=== PATIENT | female | born 1970 | race Caucasian/White ===

== ENCOUNTER 2018-03-04 08:16 | Emergency (ER) | END 2018-03-04 09:41 | disposition home or self-care (01) ==

== ENCOUNTER 2018-12-03 09:54 | Emergency (ER) | payer BC, OTHER ==
[~2018-12-03] VITALS: Ht 160 cm; Wt 112.8 kg
[~2018-12-03 09:54] MED LIST: NITR-58 PO; PHEN-537 PO
[2018-12-03 09:58] VITALS: RESP 18; Ht 160 cm; Wt 112.8 kg
[2018-12-03] MEDS ORDERED: SOD CHLORIDE 0.9% 1,000 ML IV STA (10:30)
[2018-12-03] MEDS ORDERED: KETOROLAC 30 MG INJ IV STA (10:30)
[2018-12-03] MEDS ORDERED: IOHEXOL 300MG/ML 150 ML BTL ONE (12:06)
[2018-12-03] MEDS ORDERED: SOD CHLORIDE 0.9% 100 ML ONE (12:06)
--- NOTE | 2018-12-03 12:12 | NUR ---
Procedure Ordered: CT ABD/PELV WITH IV CON Reason for Exam Today: ABD PAIN Previous Exams: Allergies: MORPHINE Current Medications Taken: Glucophage ( ) Metformin ( ) Previous reaction to contrast media: Yes ( ) No ( ) : Yes ( ) No ( X) Asthma: Yes ( X) No ( ) Diabetes: Yes (X ) No ( ) Myeloma: Yes ( ) No ( X) Heart Disease: Yes ( ) No (X ) Cardiac Disease: Yes ( ) No (X ) Kidney Disease: Yes ( ) No ( X) Vascular Disease: Yes ( ) No ( X) Patient Teaching done: Yes ( ) No ( ) Broadcast Meteorologist Used: Yes ( ) No ( ) Name of Broadcast Meteorologist: Language Used: As part of the test requested by your doctor, contrast media may be injected into your vein while the x-rays are being taken. Occasionally, reactions from IV contrast may occur. The physician and staff of this hospital are trained to treat these reactions. Select the type of Contrast that will be given to patient: Isovue 300 ( ) Isovue 370 ( ) Visipaque ( ) Cystografin ( ) Gastrographin ( ) Redi-cat ( ) Volumen ( ) Amount of contrast to be given: [id number]: 100CC IV IV ( ) PO ( ) Date given: 12.03.18 Lab Values: BUN: 5 Creatinine: .41 Reason why contrast cannot be given: Location of patient pre-procedure: ED2 Location of patient post procedure: ED2
[2018-12-03] MEDS ORDERED: HYDROmorphONE 0.5 MG/0.5 ML SYG IV STA (12:59)
[2018-12-03] MEDS ORDERED: MAGNESIUM CITRATE 300 ML BTL PO ONE (13:00)
[2018-12-03] MEDS ORDERED: TRAM50TA2 PO (13:53)
[2018-12-03] MEDS ORDERED: MAGN400O19 PO (13:53)
[2018-12-03] MEDS ORDERED: ONDA8TAB14 PO (13:56)
--- NOTE | 2018-12-03 13:56 | ERD ---
ER Documentation Chief Complaint Chief Complaint had appendectomy 11/27/18,+ nausea and vomiting, no bm in 6 days HPI This 48-year-old female presents status post appendectomy 6 days ago. She is here for vomiting intermittently nonbilious nonbloody. She is generalized lower abdominal pain as well. She has not had a bowel movement 6 days. She is passing gas. She denies fever chills. She is referred by her primary doctor Dr. Acuna for further evaluation. ROS All systems reviewed and are negative except as per history of present illness. Medications Home Meds Active Scripts Tramadol HCl (Tramadol HCl) 50 Mg Tablet, 50 MG PO Q4 PRN for PAIN, #20 TAB Prov:RAF JACOBO MD 12/03/18 Magnesium Hydroxide* (Milk Of Magnesia*) 400 Mg/5 Ml Oral.susp, 30 ML PO BID for 7 Days, ML Prov:RAF JACOBO MD 12/03/18 Phenazopyridine Hcl* (Pyridium*) 100 Mg Tab, 100 MG PO TID PRN for URINARY PAIN, #6 TAB Prov:POOL KOCH. TIRE REGROOVING MACHINE OPERATOR 03/04/18 Nitrofurantoin Monohyd Macrocr* (Macrobid*) 100 Mg Capsr, 100 MG PO BID for 7 Days, CAP Prov:POOL KOCH TIRE REGROOVING MACHINE OPERATOR 03/04/18 Allergies Allergies: Coded Allergies: morphine (Verified Allergy, Unknown, 12/03/18) PMhx/Soc History of Surgery: Yes (Cholecystectomy, CSX1; APPENDECTOMY) Anesthesia Reaction: No Hx Miscellaneous Medical Probl: Yes (DM, reccurent UTI) Hx Alcohol Use: No Hx Substance Use: No Hx Tobacco Use: No Smoking Status: Never smoker FmHx Family History: No diabetes, No coronary disease, No other Physical Exam Vitals Vital Signs Date Temp Pulse Resp B/P (MAP) Pulse Ox O2 O2 Flow FiO2 Time Delivery Rate 12/03/18 97.6 98 18 186/86 97 09:58 (119) Physical Exam Const: No acute distress morbidly obese. Head: Atraumatic Eyes: Normal Conjunctiva ENT: Normal External Ears, Nose and Mouth. Neck: Full range of motion. No meningismus. Resp: Clear to auscultation bilaterally Cardio: Regular rate and rhythm, no murmurs Abd: Soft, mild generalized tenderness without focal rebound or masses., non distended. Normal bowel sounds Skin: No petechiae or rashes Back: No midline or flank tenderness Ext: No cyanosis, or edema Neur: Awake and alert Psych: Normal Mood and Affect Result Diagram: 12/03/18 1050 12/03/18 1050 Results 24 hrs Laboratory Tests Test 12/03/18 10:13 12/03/18 10:45 12/03/18 10:50 Urine Color YELLOW Urine Clarity CLEAR Urine pH 6.0 Urine Specific [place] 1.035 Urine Ketones NEGATIVE mg/dL Urine Nitrite NEGATIVE mg/dL Urine Bilirubin NEGATIVE mg/dL Urine Urobilinogen NEGATIVE mg/dL Urine Leukocyte Esterase TRACE Susannah/ul Urine Microscopic RBC 1 /HPF Urine Microscopic WBC 3 /HPF Urine Squamous Epithelial Cells FEW /HPF Urine Hemoglobin 1+ mg/dL Urine Glucose 3+ mg/dL Urine Total Protein 1+ mg/dl POC Beta HCG, Qualitative NEGATIVE White Blood Count 8.0 10^3/ul Red Blood Count 5.57 10^6/ul Hemoglobin 13.9 g/dl Hematocrit 41.7 % Mean Corpuscular Volume 74.9 fl Mean Corpuscular Hemoglobin 25.0 pg Mean Corpuscular 33.3 g/dl Hemoglobin Concent Red Cell Distribution Width 14.1 % Platelet Count 310 10^3/UL Mean Platelet Volume 10.0 fl Immature Granulocytes % 0.400 % Neutrophils % 57.2 % Lymphocytes % 31.1 % Monocytes % 7.2 % Eosinophils % 3.9 % Basophils % 0.2 % Nucleated Red Blood Cells % 0.0 /100WBC Immature Granulocytes # 0.030 10^3/ul Neutrophils # 4.6 10^3/ul Lymphocytes # 2.5 10^3/ul Monocytes # 0.6 10^3/ul Eosinophils # 0.3 10^3/ul Basophils # 0.0 10^3/ul Nucleated Red Blood Cells # 0.0 10^3/ul Sodium Level 141 mmol/L Potassium Level 4.5 mmol/L Chloride Level 99 mmol/L Carbon Dioxide Level 30 mmol/L Anion Gap 12 Blood Urea Nitrogen 5 mg/dl Creatinine 0.41 mg/dl Est Glomerular Filtrat > 60 mL/min Rate mL/min Glucose Level 288 mg/dl Calcium Level 9.3 mg/dl Total Bilirubin 0.2 mg/dl Direct Bilirubin 0.00 mg/dl Indirect Bilirubin 0.2 mg/dl Aspartate Amino Transf (AST/SGOT) 28 IU/L Alanine 27 IU/L Aminotransferase (ALT/SGPT) Alkaline Phosphatase 131 IU/L Total Protein 7.9 g/dl Albumin 4.0 g/dl Globulin 3.90 g/dl Albumin/Globulin Ratio 1.02 Lipase 62 U/L Current Medications Medications Dose Sig/Jessica Start Time Status Last (Trade) Ordered Route PRN Stop Time Admin Dose Reason Admin Sodium 1,000 ml @ Q1H STAT 12/03/18 DC 12/03/18 Chloride 1,000 mls/hr IV 10:30 12/03/18 11:00 11:29 Ketorolac 30 mg ONCE STAT 12/03/18 DC 12/03/18 Tromethamine IV 10:30 12/03/18 10:59 (Toradol) 10:33 IV Flush 10 ml STK-MED 12/03/18 DC 12/03/18 (NS 10 ml) ONCE .ROUTE 12:06 12/03/18 12:17 12:07 Sodium 100 ml @ ud STK-MED 12/03/18 DC 12/03/18 Chloride ONCE .ROUTE 12:06 12/03/18 12:17 12:07 Iohexol 150 ml STK-MED 12/03/18 DC 12/03/18 (Omnipaque ONCE .ROUTE 12:06 12/03/18 12:17 300mg/ ml) 12:07 Magnesium 300 ml ONCE ONCE 12/03/18 DC 12/03/18 Citrate PO 13:00 12/03/18 13:11 (Citroma) 13:01 1 mg ONCE STAT 12/03/18 DC 12/03/18 Hydromorphone IV 12:59 12/03/18 13:11 HCl 13:00 (Dilaudid) Procedures/MDM Patient presents with postoperative pain and vomiting. She is passing gas. IV was obtained. She was given 1 L normal saline IV, CBC shows no significant acute abnormalities. CMP normal. Urine shows no significant signs of infection. Patient is given Toradol 30 mg IV, Zofran 4 mg IV. Patient was given Dilaudid 1 mg IV for persistent pain. CT abdomen pelvis shows nonspecific ovarian lesion with outpatient follow-up recommended. There is no evidence of ileus, constipation, signs of abscess. Patient had resolution of pain after observation and treatment. She was given magnesium citrate 1 bottle p.o. Call was placed to Dr. Ananda Garcia and case discussed. There is no findings of abscess, ileus, patient is improved here with observation treatment in ER. We will treat for pain with tramadol, milk of magnesia for constipation and return precautions for vomiting,, fevers, worsening pain, new worsening symptoms. Dr. Asya Garcia and patient agrees with plan. The patient was stable with no new complaints during the ER course. Clinically, there is no current evidence to suggest meningitis, sepsis, acute abdomen, pneumonia, stroke, acute coronary syndrome, pulmonary embolism, aortic dissection or any other emergent condition appearing to require further evaluation or hospitalization. Patient counseled regarding my diagnostic impression and care plan. Prior to discharge all questions answered. Pt agrees with treatment plan and understands strict return precautions. Pt is instructed to follow up with primary care provider within 24- 48 hours. Precautionary instructions provided including instructions to return to the ER if not improving or for any worsening or changing symptoms or concerns. Departure Diagnosis: Primary Impression: Post-op pain Condition: Stable Patient Instructions: Constipation (Adult), Post Op Wound Check, Pain Additional Instructions: No significant abnormal findings seen on CT scan. We will treat for constipation and pain. Drink clear fluids at home. See primary doctor for further evaluation of findings on ovary not related to surgery. Recheck for vomiting, fevers, worsening pain, blood, new worsening symptoms. RAF JACOBO MD Dec 03, 2018 13:56
[2018-12-03] MEDS ORDERED: ONDANSETRON 4 MG INJ IV STA (14:16)
[2018-12-03 14:18] VITALS: BP 144/83; PULSE 83
== END 2018-12-03 14:37 | disposition home or self-care (01) ==
LOC: FTE 09:54
DX: G89.18 Other acute postprocedural pain (principal); E11.9 Type 2 diabetes mellitus without complications
CPT/HCPCS: 36415; 74177; 80053; 81001; 81025; 83690; 85025; 96361; 96374; 96375; 99285; J1170; J1885; J2405; J7030; Q9967

== ENCOUNTER 2018-12-17 17:37 | Inpatient (IN) | payer BC, OTHER ==
[~2018-12-17] VITALS: Ht 160 cm; Wt 112.9 kg
[~2018-12-17 17:37] MED LIST changes: +MAGN400O19 PO; +ONDA8TAB14 PO; +TRAM50TA2 PO
[2018-12-17] MEDS ORDERED: LANT3I SC (19:46)
[2018-12-17] MEDS ORDERED: INSU100I12 SQ (19:46)
[2018-12-17] MEDS ORDERED: LISI-313 PO (19:47)
[2018-12-17] MEDS ORDERED: ASPIRIN 81 MG TAB PO STA (19:57)
--- NOTE | 2018-12-17 20:04 | ERD ---
ER Documentation Chief Complaint Chief Complaint L-SIDED CHEST TIGHTNESS WITH SOB X FEW DAYS; SENT BY PCP HPI 48-year-old female with a history of diabetes presenting with chest tightness with shortness of breath for the past few days. She states that the symptoms are intermittent but worse with deep inspiration. Not worsened with exertion. No associated diaphoresis, nausea, vomiting, dizziness. She did have surgery recently at the beginning of the month. She denies any cardiac history but does have a family history of heart disease in her family. She was seen by her primary care doctor, Dr. Meyer, who sent her here for admission for observation and cardiac workup. Reportedly she had an abnormal EKG there. ROS All systems reviewed and are negative except as per history of present illness. Medications Home Meds Reported Medications Lisinopril* (Lisinopril*) 5 Mg Tablet, 5 MG PO DAILY, #30 TAB 12/17/18 Insulin Lispro (Humalog Kwikpen U-100) 100 Unit/1 Ml Insuln.pen, 0 SQ WITH MEALS, EA INJECT 15-20 UNIT 12/17/18 Insulin Glargine* (Lantus*) 100 Unit/Ml Soln, 0 SC QHS, #1 VIAL INJECT 30-40 UNIT 12/17/18 Discontinued Scripts Ondansetron (Ondansetron Odt) 8 Mg Tab.rapdis, 8 MG PO Q6H PRN for NAUSEA AND/OR VOMITING, #6 TAB Prov:RAF JACOBO MD 12/03/18 Tramadol HCl (Tramadol HCl) 50 Mg Tablet, 50 MG PO Q4 PRN for PAIN, #20 TAB Prov:RAF JACOBO MD 12/03/18 Magnesium Hydroxide* (Milk Of Magnesia*) 400 Mg/5 Ml Oral.susp, 30 ML PO BID for 7 Days, ML Prov:RAF JACOBO MD 12/03/18 Phenazopyridine Hcl* (Pyridium*) 100 Mg Tab, 100 MG PO TID PRN for URINARY PAIN, #6 TAB Prov:POOL KOCH NP 03/04/18 Nitrofurantoin Monohyd Macrocr* (Macrobid*) 100 Mg Capsr, 100 MG PO BID for 7 Days, CAP Prov:POOL KOCH NP 03/04/18 Allergies Allergies: Coded Allergies: morphine (Verified Allergy, Unknown, 12/17/18) PMhx/Soc History of Surgery: Yes (Cholecystectomy, CSX1; APPENDECTOMY) Anesthesia Reaction: No Hx Miscellaneous Medical Probl: Yes (DM, reccurent UTI) Hx Alcohol Use: No Hx Substance Use: No Hx Tobacco Use: No Smoking Status: Never smoker FmHx Family History: coronary disease Physical Exam Vitals Vital Signs Date Temp Pulse Resp B/P (MAP) Pulse Ox O2 O2 Flow FiO2 Time Delivery Rate 12/17/18 95 20 133/67 96 Room Air 21:18 (89) 12/17/18 95 21 116/99 100 Room Air 19:28 (105) 12/17/18 98.7 106 14 185/81 98 17:58 (115) Physical Exam Const: No acute distress Head: Atraumatic Eyes: Normal Conjunctiva ENT: Normal External Ears, Nose and Mouth. Neck: Full range of motion. No meningismus. Resp: Clear to auscultation bilaterally Cardio: Tachycardic with regular rhythm, no murmurs. 2+ distal pulses in all 4 extremities Abd: Soft, non tender, non distended. Normal bowel sounds Skin: No petechiae or rashes Back: No midline or flank tenderness. Ext: No cyanosis, or edema. No calf tenderness Neur: Awake and alert Psych: Normal Mood and Affect Result Diagram: 12/17/18195612/17/181956 Results 24 hrs Laboratory Tests Test 12/17/18 19:31 12/17/18 19:57 POC Beta HCG, Qualitative NEGATIVE White Blood Count 7.4 10^3/ul Red Blood Count 5.56 10^6/ul Hemoglobin 13.7 g/dl Hematocrit 41.7 % Mean Corpuscular Volume 75.0 fl Mean Corpuscular Hemoglobin 24.6 pg Mean Corpuscular Hemoglobin Concent 32.9 g/dl Red Cell Distribution Width 13.2 % Platelet Count 328 10^3/UL Mean Platelet Volume 10.6 fl Immature Granulocytes % 0.100 % Neutrophils % 44.2 % Lymphocytes % 42.3 % Monocytes % 9.1 % Eosinophils % 3.9 % Basophils % 0.4 % Nucleated Red Blood Cells % 0.0 /100WBC Immature Granulocytes # 0.010 10^3/ul Neutrophils # 3.3 10^3/ul Lymphocytes # 3.1 10^3/ul Monocytes # 0.7 10^3/ul Eosinophils # 0.3 10^3/ul Basophils # 0.0 10^3/ul Nucleated Red Blood Cells # 0.0 10^3/ul D-Dimer 685.89 ng/ml D-Dimer Comment Sodium Level 134 mmol/L Potassium Level 4.1 mmol/L Chloride Level 91 mmol/L Carbon Dioxide Level 34 mmol/L Anion Gap 9 Blood Urea Nitrogen 9 mg/dl Creatinine 0.47 mg/dl Est Glomerular Filtrat Rate mL/min > 60 mL/min Glucose Level 435 mg/dl Calcium Level 9.6 mg/dl Troponin I < 0.012 ng/ml Current Medications Medications Dose Sig/Jessica Start Time Status Last (Trade) Ordered Route PRN Stop Time Admin Dose Reason Admin Aspirin 162 mg ONCE STAT 12/17/18 DC 12/17/18 (Aspirin) PO 19:57 20:31 12/17/18 19:58 Ondansetron 4 mg ER BRIDGE 12/17/18 HCl (Zofran PRN IV n/v 21:30 Inj) 12/18/18 21:29 650 mg ER BRIDGE 12/17/18 Acetaminophen PRN PO shahab 21:30 (Tylenol n 12/18/18 21:29 Tab) IV Flush 3 ml PER 12/17/18 (NS 3 ml) PROTOCOL IV 21:30 Ondansetron 4 mg Q6H PRN 12/17/18 HCl (Zofran IV NAUSEA 21:30 Inj) Aspirin 325 mg DAILY PO 12/18/18 (Ecotrin) 09:00 1 tab Q5M PRN 12/17/18 Nitroglycerin SL CHEST 21:30 PAIN (Nitroglyceri n (Sl Tab) 0.4 Mg) 650 mg Q6H PRN 12/17/18 Acetaminophen PO PAIN 21:30 (Tylenol LEVEL 1-5 Tab) Zolpidem 5 mg QHS PRN 12/17/18 Tartrate PO SLEEP 21:30 (Ambien) Docusate 100 mg Q12H PRN 12/17/18 Sodium PO 21:30 (Colace) CONSTIPATION Magnesium 30 ml DAILY PRN 12/17/18 Hydroxide PO 21:30 (Milk Of Mag) CONSTIPATION 40 mg DAILY@06 12/18/18 Pantoprazole PO 06:00 (Protonix Tab) Lisinopril 5 mg DAILY PO 12/18/18 (Zestril) 09:00 Insulin NOVOLOG WITH MEALS 12/18/18 Aspart *MILD* BEDTIME SC 08:00 (Novolog ALGORITHM Insulin Pen) Discontinue ONCE ONCE 12/17/18 DC Miscellaneous all previ... XX 21:30 12/17/18 21:37 Information (* Miscellaneous Pharmacy Order) Insulin 29 units DAILY@199912/18/18 Glargine SC 20:00 (Lantus) 1 ea NOTE XX 12/17/18 Miscellaneous 22:00 Information Glucose 15 gm Q15M PRN 12/17/18 (Glutose) PO DECREASED 22:00 GLUCOSE Glucose 22.5 gm Q15M PRN 12/17/18 (Glutose) PO DECREASED 22:00 GLUCOSE Dextrose 25 ml Q15M PRN 12/17/18 (D50w IV DECREASED 22:00 Syringe) GLUCOSE Dextrose 50 ml Q15M PRN 12/17/18 (D50w IV DECREASED 22:00 Syringe) GLUCOSE Glucagon 1 mg Q15M PRN 12/17/18 (Glucagen) IM DECREASED 22:00 GLUCOSE Glucose 15 gm Q15M PRN 12/17/18 (Glutose) BUCCAL 22:00 DECREASED GLUCOSE Procedures/MDM EMERGENT LABS AND DIAGNOSTIC STUDIES: Lab Results above were reviewed and interpreted by me. CBC: no anemia or evidence of infection BMP: Hyperglycemic. No e/o severe acidosis, alkalosis, renal failure, diabetic ketoacidosis Troponin within normal limits, not indicative of cardiac ischemia D-dimer slightly elevated 12-lead EKG was interpreted by North Woodson MD: Normal Sinus Rhythm Normal axis Normal intervals Anteroseptal Q waves No acute ST or T wave changes suggestive of acute ischemia or STEMI. Radiology Results as interpreted by Radiology below were reviewed by Mick Woodson MD: Chest x-ray shows no acute abnormalities CTA chest pending Initial Nursing notes reviewed. Previous Medical Records requested via the Electronic Health Record. EMERGENCY DEPARTMENT COURSE / MEDICAL DECISION MAKING: Patient is presenting with chest pain with shortness of breath. Vitals are stable but she is slightly tachycardic. She is at an increased risk for PE given her recent surgery less than 1 month ago. D-dimer was ordered and was elevated. Troponin was within normal limits. EKG did show Q waves but no acute changes. CTA was ordered and is pending. Her primary care doctor would like to admit her for further observation and workup. Accepting Care Team: Current data and ongoing care discussed. Time: Time of admission Primary Provider: Dr. Meyer Outstanding Data: CTA chest Departure Diagnosis: Primary Impression: Chest pain Chest pain type: unspecified Qualified Codes: R07.9 - Chest pain, unspecified Additional Impression: Hyperglycemia Condition: Fair RIZWAN WOODSON MD Dec 17, 2018 20:04
[2018-12-17] MEDS ORDERED: ACETAMINOPHEN 325 MG TAB PO PRN (21:30)
[2018-12-17] MEDS ORDERED: MAGNESIUM HYDROXIDE 30ML CUP PO PRN (21:30)
[2018-12-17] MEDS ORDERED: ZOLPIDEM 5 MG TAB PO PRN (21:30)
[2018-12-17] MEDS ORDERED: NITROGLYCERIN (SL) 0.4 MG TAB SL PRN (21:30)
[2018-12-17] MEDS ORDERED: ONDANSETRON 4 MG INJ IV PRN ×2 (21:30)
[2018-12-17] MEDS ORDERED: DOCUSATE SODIUM 100 MG CAP PO PRN (21:30)
[2018-12-17] MEDS ORDERED: NACL 0.9% 3 ML SYG IV SCH (21:30)
[2018-12-17] MEDS ORDERED: GLUCOSE GEL 15 GRAM TUBE BUCCAL PRN (22:00)
[2018-12-17] MEDS ORDERED: DEXTROSE 50% 50 ML SYRINGE IV PRN ×2 (22:00)
[2018-12-17] MEDS ORDERED: GLUCAGON 1 MG INJ IM PRN (22:00)
[2018-12-17] MEDS ORDERED: GLUCOSE GEL 15 GRAM TUBE PO PRN ×2 (22:00)
--- NOTE | 2018-12-17 22:27 | HP ---
DATE OF ADMISSION: 12/17/2018 REASON FOR ADMISSION: Chest pain and shortness of breath. HISTORY OF PRESENT ILLNESS: This 48-year-old female was seen by me in my office today because of chest pain, shortness of breath and cough. The patient has not felt well since she had an appendectomy on 11/27/2018 at [facility]. This was done laparoscopically. The patient was seen by me on 12/03/2018 because of nausea and vomiting after her surgery. The patient was seen at [facility] on 12/03/2018. She had a CAT scan done which just showed some stool in the colon. The patient did not have anything else on physical exam or laboratory tests and was sent home on laxative. The patient then developed the above symptoms and saw me again today. She does have a strong family history of heart disease with her father dying of an acute ND at age 57. She has a history of type 2 diabetes mellitus with hypertension and is obese. CURRENT MEDICATIONS: Include the followin. Vitamin D supplements. 2. NovoLog insulin sliding scale. 3. Lantus insulin 25 units at bedtime. 4. Lisinopril 5 mg a day. 5. MiraLax daily. PAST MEDICAL HISTORY: Remarkable for hypertension, type 2 diabetes mellitus, hyperlipidemia, obesity, peripheral neuropathy, plantar fasciitis, and urinary tract infections. PAST SURGICAL HISTORY: section, cholecystectomy, appendectomy. SOCIAL HISTORY: She is . Does not smoke, does not drink alcohol. REVIEW OF SYSTEMS: CONSTITUTIONAL: No chills or sweats. No fever. HEENT: Negative. CARDIOVASCULAR: See above. PULMONARY: See above. CARDIORESPIRATORY: See above. GASTROINTESTINAL: Nausea, intermittent vomiting, no urinary symptoms. PHYSICAL EXAMINATION: GENERAL: At this time reveals an obese female in no apparent distress. VITAL SIGNS: Blood pressure 150/90, pulse of 120, temperature 96.4, O2 sat 97% on room air. HEAD: Normocephalic. EYES: Extraocular muscles intact. NOSE AND MOUTH: Normal. NECK: Supple. No neck vein distention. LUNGS: Clear to auscultation. HEART: Regular rhythm with I to II/ systolic ejection murmur. ABDOMEN: Soft, obese. There is some slight mid abdominal tenderness. EXTREMITIES: Trace pretibial edema. NEUROLOGIC: Grossly intact. No obvious focal neurologic deficits. IMPRESSION: 1. Chest pain, rule out acute coronary syndrome. She does have a strong family history of heart disease. She does have risk factors of type 2 diabetes mellitus, hypertension and hyperlipidemia. She has a systolic ejection murmur which I have not heard previously. 2. Status post appendectomy 11/27/2018. 3. Type 2 diabetes mellitus. 4. Obesity. 5. Hypertension. PLAN: 1. Admit to telemetry floor for further evaluation and treatment. 2. Check cardiac enzymes, D-dimer. 3. Echocardiogram ordered 4. Repeat chest x-ray and EKG in a.m. Dictated By: YISEL JOHNSON MD, ND/BERTHA Conf#: [id number] DID#: [id number] JERRELL
[2018-12-17] MEDS ORDERED: IOHEXOL 100 ML ONE (23:11)
[2018-12-17] MEDS ORDERED: SOD CHLORIDE 0.9% 100 ML ONE (23:11)
[2018-12-17 23:23] VITALS: PULSE 94
[2018-12-17 23:30] VITALS: Ht 160 cm; Wt 112.9 kg
--- NOTE | 2018-12-17 23:30 | NUR ---
Pt refused admission photos and bed alarm. Pt alert and oriented x4 with steady gait.
[2018-12-18] VITALS (11 sets, daily range): BP systolic 118–148; BP diastolic 61–70; PULSE 74–92; RESP 18–20
[2018-12-18] MEDS: PANTOPRAZOLE (EC) 40 MG TAB PO SCH (05:55)
--- NOTE | 2018-12-18 06:00 | NUR ---
End of Shift Summary No change in pt condition. See pt assessment and EMAR.
[2018-12-18] MEDS: ACETAMINOPHEN 325 MG TAB PO PRN ×2 (07:57→15:54)
[2018-12-18] MEDS: INSULIN ASPART [NOVOLOG] 3 ML PEN SC SCH ×4 (07:59→20:00)
[2018-12-18] MEDS: LISINOPRIL 5 MG TAB PO SCH (08:12)
[2018-12-18] MEDS: ASPIRIN (EC) 325 MG TAB PO SCH (08:12)
--- NOTE | 2018-12-18 08:41 | PN ---
Date/Time of Note Date/Time of Note DATE: 12/18/18 TIME: 08:34 Assessment/Plan VTE Prophylaxis SCD applied (from Nsg): No SCD contraindicated: other Pharmacological prophylaxis: LMWH Lines/Catheters IV Catheter Type (from Nrsg): Saline Lock Assessment/Plan Hospital Course 1. Chest pain with shortness of breath. Thus far her medical workup has been negative for pulmonary embolism. Her troponin was normal. She did have a slightly elevated d-dimer. An echocardiogram was done this morning and the result is pending. Her EKG is abnormal showing an old anterior septal TN. Will await results of echocardiogram. I will order lower extremity venous Doppler to rule out DVT. Cardiology consult ordered. 2 diabetes mellitus type 2, poorly controlled. Will have elementary educator see patient. 3. Status post recent laparoscopic appendectomy 4. Hypertension Result Diagram: 12/18/18 0456 12/18/18 0456 Results 24hrs Laboratory Tests Test 12/17/18 19:31 12/17/18 19:57 12/18/18 04:56 12/18/18 07:34 POC Beta HCG, NEGATIVE Qualitative White Blood Count 7.4 7.4 Red Blood Count 5.56 H 5.08 Hemoglobin 13.7 12.4 Hematocrit 41.7 37.6 Mean Corpuscular 75.0 L 74.0 L Volume Mean Corpuscular 24.6 L 24.4 L Hemoglobin Mean Corpuscular 32.9 33.0 Hemoglobin Concent Red Cell 13.2 13.2 Distribution Width Platelet Count 328 293 Mean Platelet Volume 10.6 H 10.5 H Immature 0.100 0.300 Granulocytes % Neutrophils % 44.2 46.6 Lymphocytes % 42.3 40.4 Monocytes % 9.1 8.8 Eosinophils % 3.9 3.5 Basophils % 0.4 0.4 Nucleated Red Blood 0.0 0.0 Cells % Immature 0.010 0.020 Granulocytes # Neutrophils # 3.3 3.4 Lymphocytes # 3.1 H 3.0 H Monocytes # 0.7 0.7 Eosinophils # 0.3 0.3 Basophils # 0.0 0.0 Nucleated Red Blood 0.0 0.0 Cells # D-Dimer 685.89 H D-Dimer Comment Sodium Level 134 L 138 Potassium Level 4.1 4.4 Chloride Level 91 L 96 L Carbon Dioxide Level 34 H 28 Anion Gap 9 14 H Blood Urea Nitrogen 9 11 Creatinine 0.47 0.43 L Est Glomerular > 60 > 60 Filtrat Rate mL/min Glucose Level 435 *H 357 H Calcium Level 9.6 9.1 Troponin I < 0.012 Hemoglobin A1c 11.5 H Total Bilirubin 0.1 L Direct Bilirubin 0.00 Indirect Bilirubin 0.1 Aspartate Amino 17 Transf (AST/SGOT) Alanine 24 Aminotransferase (AL T/SGPT) Alkaline Phosphatase 102 Total Protein 7.2 Albumin 3.6 Globulin 3.60 H Albumin/Globulin 1.00 Ratio Bedside Glucose 292 H Subjective 24 Hr Interval Summary Free Text/Dictation Ciara is awake and alert. She is not having chest pain or shortness of breath at this time. She did have a CT angiogram of the chest which was negative for pulmonary embolism. Constitutional: no complaints Respiratory: no complaints Cardiovascular: no complaints Gastrointestinal: no complaints Genitourinary: no complaints Exam/Review of Systems Vital Signs Vitals Vital Signs Date Temp Pulse Resp B/P (MAP) Pulse Ox O2 O2 Flow FiO2 Time Delivery Rate 12/18/18 82 08:15 12/18/18 97.5 20 131/61 96 Room Air 07:29 (84) Intake and Output 12/17/18 12/17/18 12/18/18 1515:00 23:00 07:00 IntakeIntake Total 300 ml BalanceBalance 300 ml Exam Constitutional: alert, oriented, obese Respiratory: clear to auscultation, normal air movement Cardiovascular: regular rate and rhythm, edema Gastrointestinal: soft, non-tender Extremities: edema Medications Medications Current Medications Ondansetron HCl (Zofran Inj) 4 mg ER BRIDGE PRN IV n/v; Start 12/17/18 at 21:30; Stop 12/18/18 at 21:29 Acetaminophen (Tylenol Tab) 650 mg ER BRIDGE PRN PO shahab n Last administered on 12/18/18at 07:57; Admin Dose 650 MG; Start 12/17/18 at 21:30; Stop 12/18/18 at 21:29 IV Flush (NS 3 ml) 3 ml PER PROTOCOL IV ; Start 12/17/18 at 21:30 Ondansetron HCl (Zofran Inj) 4 mg Q6H PRN IV NAUSEA; Start 12/17/18 at 21:30 Aspirin (Ecotrin) 325 mg DAILY PO Last administered on 12/18/18at 08:12; Admin Dose 325 MG; Start 12/18/18 at 09:00 Nitroglycerin (Nitroglycerin (Sl Tab) 0.4 Mg) 1 tab Q5M PRN SL CHEST PAIN; Start 12/17/18 at 21:30 Acetaminophen (Tylenol Tab) 650 mg Q6H PRN PO PAIN LEVEL 1-5; Start 12/17/18 at 21:30 Zolpidem Tartrate (Ambien) 5 mg QHS PRN PO SLEEP; Start 12/17/18 at 21:30 Docusate Sodium (Colace) 100 mg Q12H PRN PO CONSTIPATION; Start 12/17/18 at 21:30 Magnesium Hydroxide (Milk Of Mag) 30 ml DAILY PRN PO CONSTIPATION; Start 12/17/18 at 21:30 Pantoprazole (Protonix Tab) 40 mg DAILY@06 PO Last administered on 12/18/18at 05:55; Admin Dose 40 MG; Start 12/18/18 at 06:00 Lisinopril (Zestril) 5 mg DAILY PO Last administered on 12/18/18at 08:12; Admin Dose 5 MG; Start 12/18/18 at 09:00 Insulin Aspart (Novolog Insulin Pen) NOVOLOG *MILD* ALGORITHM WITH MEALS BEDTIM E SC Last administered on 12/18/18at 07:59; Admin Dose 4 UNIT; Start 12/18/18 at 08:00 Insulin Glargine (Lantus) 29 units DAILY@2000 SC ; Start 12/18/18 at 20:00 Miscellaneous Information 1 ea NOTE XX ; Start 12/17/18 at 22:00 Glucose (Glutose) 15 gm Q15M PRN PO DECREASED GLUCOSE; Start 12/17/18 at 22:00 Glucose (Glutose) 22.5 gm Q15M PRN PO DECREASED GLUCOSE; Start 12/17/18 at 22:00 Dextrose (D50w Syringe) 25 ml Q15M PRN IV DECREASED GLUCOSE; Start 12/17/18 at 22:00 Dextrose (D50w Syringe) 50 ml Q15M PRN IV DECREASED GLUCOSE; Start 12/17/18 at 22:00 Glucagon (Glucagen) 1 mg Q15M PRN IM DECREASED GLUCOSE; Start 12/17/18 at 22:00 Glucose (Glutose) 15 gm Q15M PRN BUCCAL DECREASED GLUCOSE; Start 12/17/18 at 22:00 YISEL JOHNSON MD Dec 18, 2018 08:41
[2018-12-18] MEDS: ENOXAPARIN 40 MG/0.4 ML SYG SC SCH (09:27)
--- NOTE | 2018-12-18 16:19 | RADRPT ---
Echocardiogram Report Patient Name: SUSANNAH AL Gender: Female Date: 1970 Study Date: 18-Dec-2018 Outsole Cementer Machine: Feng Duncan [facility] Location: 601 Ref. Physician: YISEL JOHNSON Quality: Adequate Procedures: Transthoracic echocardiogram with complete 2D, M-Mode, and doppler examination. Indications: Chest Pain. 2D/M Mode Doppler Measurement Value Normal Ranges Measurement Value Normal Ranges LVIDd 2D 4.4 3.5 - 5.6 cm AV Peak Demar 1.5 m/sec LVIDs 2D 2.5 2.1 - 4.1 cm AV Peak PG 9.0 mmHg LVPWd 2D 1.1 0.6 - 1.1 cm LVOT Peak Demar 1.0 m/sec IVSd 2D 1.1 0.6 - 1.1 cm LVOT Peak PG 4.0 mmHg AoR Diam 2D 2.8 2.0 - 3.7 cm MV E Peak Demar 0.9 m/sec LA/Ao 2D 1 0 - 1 MV A Peak Demar 1.1 m/sec LA Dimen 2D 3.7 2.3 - 4.0 cm MV E/A 0.8 MV Decel Time 187 msec Lat E` Demar 0.1 m/sec Lateral E/E` 10.9 MV E/A 0.8 Findings Left Ventricle: Normal left ventricular systolic function. Normal left ventricular cavity size. Mild concentric left ventricular hypertrophy. Ejection fraction is visually estimated at 5560 %. Tissue Doppler/Mitral Doppler indices are within normal limits. Right Ventricle: Normal right ventricular size. Normal right ventricular systolic function. Left Atrium: The left atrium is normal in size. Right Atrium: The right atrium is normal in size. Mitral Valve: Normal appearance and function of the mitral valve with trace physiologic regurgitation. Aortic Valve: Normal appearance of the aortic valve. No significant aortic stenosis or insufficiency. Tricuspid Valve: Normal appearance of the tricuspid valve. Unable to obtain RVSP due to minimal presence of tricuspid regurgitation. Pulmonic Valve: Normal pulmonic valve appearance. Pericardium: Normal pericardium with no significant pericardial effusion. Aorta: Normal aortic root. IVC: Normal size and normal respiratory collapse consistent with normal right atrial pressure. Conclusions Normal left ventricular systolic function. Normal left ventricular cavity size. Mild concentric left ventricular hypertrophy. Ejection fraction is visually estimated at 55-60 %. Tissue Doppler/Mitral Doppler indices are within normal limits. Normal appearance and function of the mitral valve with trace physiologic regurgitation. Normal appearance of the tricuspid valve. Unable to obtain RVSP due to minimal presence of tricuspid regurgitation. Electronically Signed By: Cleve Pool 18-Dec-2018 16:18:37 -0800 Patient Name: SUSANNAH AL Study Date: 18-Dec-2018 [id number]
--- NOTE | 2018-12-18 16:36 | CONS ---
DATE OF ADMISSION: 12/17/2018 DATE OF CONSULTATION: 12/18/2018 TYPE OF CONSULTATION: Cardiology. REASON FOR CONSULTATION: Chest pain, assess for acute coronary syndrome. REQUESTING PHYSICIAN: Kike Johnson MD HISTORY OF PRESENT ILLNESS: Ms. Dwyer is a 48-year-old female with a history of diabetes mellitus , hypertension, status post recent appendectomy at [facility] laparoscopically on 12/2018, who initially had complaints of nausea and vomiting and presented to her primary MD and then was seen in [facility] and underwent a CT scan at that time which showed stool in t he colon. The patient was discharged to outpatient followup and then re-presented to her primary MD with complaints of left-sided substernal chest pain occurring at rest, lasting minutes with associate d shortness of breath and radiation down her left arm. Upon arrival in the emergency department, tem perature was 98.7, blood pressure 185/81, pulse 106, respiratory rate 14, satting 98%. The patient's labs showed white blood cell count of 7.4, hemoglobin 13.7, platelet count of 328, sodium 134, potas sium 4.1, creatinine 0.47, glucose 435. Troponin is negative. D-dimer is 685.89. The patient under went a CTA revealing no central pulmonary emboli, negative pulmonary arterial hypertension or right h eart strain, no evidence of thoracic effusion, no aortic aneurysm. A chest x-ray revealed evidence o f active cardiopulmonary disease and a venous ultrasound revealed no sonographic evidence of DVT. Th e patient's electrocardiogram revealed normal sinus rhythm at a rate of 80, normal axis, normal inter vals with isolated T-wave flattening in aVL. The patient was subsequently admitted to the floor and since admit to the floor, has had elevated D-dimer as above. Denies current chest pain. Has improve ment in systolic blood pressure very recently. The patient was placed on aspirin, lisinopril, p.r.n. sublingual nitroglycerin. ALLERGIES: MORPHINE. SOCIAL HISTORY: No current tobacco, EtOH or illicit drug use. FAMILY HISTORY: No history of sudden cardiac or early CAD. REVIEW OF SYSTEMS: As above in HPI. CONSTITUTIONAL: No fevers, chills. PULMONARY: No current shortness of breath. CARDIOVASCULAR: Intermittent chest pain. GASTROINTESTINAL: No vomiting. GENITOURINARY: No hematuria. MUSCULOSKELETAL: Degenerative joint disease. PSYCHIATRIC: No documented psych history. NEUROLOGIC: No documented history of CVA. ENDOCRINE: Diabetes mellitus. PHYSICAL EXAMINATION: VITAL SIGNS: Temperature 98.1, blood pressure 183/61, pulse 74, respiratory rate 22, satting 96%. GENERAL: The patient is alert, awake, complaining of intermittent left-sided substernal chest pain. NECK: JVP approximately is 8 to 9 cm water. CHEST: Fair air movement throughout. HEART: Regular rate and rhythm. Normal S1, S2, I/ systolic murmur, nondisplaced PMI. ABDOMEN: Positive bowel sounds, soft. EXTREMITIES: No significant pitting edema, 1+ pulses bilaterally, posterior tibial. LABORATORIES: Most recently from today, sodium 138, potassium 4.4, creatinine 0.4, BUN of 11, glucos e 342. White blood cell count 7.4, hemoglobin 12.4, platelet count 293. IMAGING STUDIES: As above in HPI. No further imaging for my review at this time. ELECTROCARDIOGRAM: As above in HPI. No further electrocardiogram for my review at this time. IMPRESSION: 1. Chest pain, assess for acute coronary syndrome with at this time negative troponins x1. 2. Abnormal electrocardiogram with isolated T-wave flattening in lead aVL. 3. Hypertension, under reasonable control. 4. Diabetes mellitus. 5. Status post recent laparoscopic appendectomy. 6. Cough, assess for upper respiratory infection. 7. Elevated D-dimer. RECOMMENDATIONS: 1. At this time, the patient is status post venous ultrasound revealing no evidence of DVT and CTA d oes not reveal any acute pulmonary embolism. 2. We would maintain patient on telemetry monitoring to follow rhythm and rate control closely. 3. We would complete the patient's rule out for myocardial infarction to ensure the patient's chest pain was not resulted in acute coronary syndrome such as acute myocardial infarction and thus send tr oponins q.6 x2. 4. Check a fasting lipid panel for general risk stratification and initiate lipid lowering medicatio n as necessary. 5. Continue patient's aspirin for prophylaxis against cardiovascular events. 6. Continue the patient's ZAK inhibitor for blood pressure control in the setting of diabetes. 7. We will follow up patient's 2D echo done for assessment of ejection fraction, wall motion, rule o ut any major valve abnormalities. 8. Continue the patient's sublingual nitroglycerin for any recurrent episodes of chest pain. 9. If possible given the patient's body habitus, we will consider a Lexiscan in the morning to [facility] assess the possibility of significant obstructive coronary artery disease lending to symptoms of c hest pain, abnormal EKG and subsequent admit to the hospital. Thank you for allowing me to take part in the care of this patient. I will continue to follow her cl osely with you with further recommendations to be made as the patient progresses through her [facility] clinical course. Dictated By: DEIRDRE LANGFORD MD JH/NTS Conf#: [id number] DID#: [id number] CC: KIKE JOHNSON MD;*End*
--- NOTE | 2018-12-18 18:24 | NUR ---
pt up independent ,gait steady, no c\o cp today, c\o chronic h\a some relief with tylenol pt to have stress test in am, per dr boyer
[2018-12-18] MEDS ORDERED: INSULIN GLARGINE [LANTus] (100 UNITS/ML) SYG SC SCH (20:00)
--- NOTE | 2018-12-18 21:14 | NUR ---
Pt's latest glucose level was 320mg/dl. Followed protocol of giving 4 units of Nov and given the lantus 29units. Called and left a message to consumer affairs director for Dr Acuna, Dr José Miguel Cobian. Waiting for a call back.
--- NOTE | 2018-12-18 21:20 | NUR ---
Dr Cobian called back and ordered to change from mild to moderate s/s, noted and will carry out.
[2018-12-19] VITALS (8 sets, daily range): BP systolic 118–142; BP diastolic 61–71; PULSE 70–93; RESP 18–20
[2018-12-19] MEDS ORDERED: INSULIN ASPART [NOVOLOG] 3 ML PEN SC SCH ×3 (01:00→08:00)
[2018-12-19] MEDS ORDERED: ACCU-CHEK XX SCH ×2 (02:00)
[2018-12-19] MEDS: PANTOPRAZOLE (EC) 40 MG TAB PO SCH ×2 (06:00→09:31)
--- NOTE | 2018-12-19 06:21 | NUR ---
Pt slept well all noc. Denies pain. Will have her stress test today. NPO.
[2018-12-19] MEDS: INSULIN ASPART [NOVOLOG] 3 ML PEN SC SCH ×3 (08:09→18:08)
--- NOTE | 2018-12-19 09:08 | PN ---
Date/Time of Note Date/Time of Note DATE: 12/19/18 TIME: 09:03 Assessment/Plan VTE Prophylaxis Risk score (from Ns)>0 risk: 1 SCD applied (from Ns): No SCD contraindicated: low risk/ambulating Pharmacological prophylaxis: LMWH Lines/Catheters IV Catheter Type (from Rust): Saline Lock Assessment/Plan Hospital Course 1. Chest pain with shortness of breath. Thus far her medical workup has been negative for pulmonary embolism and cardiac injury. Her troponins have been normal. She did have a slightly elevated d-dimer. An echocardiogram was done and was unremarkable. Her EKG is abnormal showing an old anterior septal [place]. Will await results of echocardiogram. I will order lower extremity venous Doppler to rule out DVT. Cardiology consult, Dr. Pool, has seen the patient. She is scheduled for a cardiac Lexiscan today. 2 diabetes mellitus type 2, poorly controlled. Her blood sugars are coming under better control. Will have breastfeeding educator see patient. 3. Status post recent laparoscopic appendectomy 4. Hypertension Result Diagram: 12/18/18 0456 12/18/18 0456 Results 24hrs Laboratory Tests Test 12/18/18 12:01 12/18/18 17:38 12/18/18 18:19 12/18/18 19:57 Bedside Glucose 342 H 284 H 320 H Troponin I < 0.012 Test 12/19/18 00:48 12/19/18 02:04 12/19/18 04:51 12/19/18 05:40 Troponin I < 0.012 < 0.012 Bedside Glucose 261 H Triglycerides Level 197 H Cholesterol Level 177 LDL Cholesterol, 115 Calculated HDL Cholesterol 23 L Cholesterol/HDL 7.6 Ratio Subjective 24 Hr Interval Summary Free Text/Dictation Ciara is awake and alert this morning. She has not had any chest pain. Her echocardiogram was essentially unremarkable. Her troponins have been negative. She is scheduled for a Gayle scan today. Constitutional: no complaints Cardiovascular: no complaints Gastrointestinal: no complaints Genitourinary: no complaints Musculoskeletal: no complaints Neurologic: no complaints Exam/Review of Systems Vital Signs Vitals Vital Signs Date Temp Pulse Resp B/P (MAP) Pulse Ox O2 O2 Flow FiO2 Time Delivery Rate 12/19/18 81 08:07 12/19/18 97.6 20 135/71 96 Room Air 07:22 (92) Intake and Output 12/18/18 12/18/18 12/19/18 1515:00 23:00 07:00 IntakeIntake Total 2000 ml 1800 ml BalanceBalance 2000 ml 1800 ml Exam Constitutional: alert, oriented, obese Respiratory: clear to auscultation, normal air movement Cardiovascular: regular rate and rhythm Gastrointestinal: soft Musculoskeletal: nl extremities to inspection Medications Medications Current Medications IV Flush (NS 3 ml) 3 ml PER PROTOCOL IV ; Start 12/17/18 at 21:30 Ondansetron HCl (Zofran Inj) 4 mg Q6H PRN IV NAUSEA; Start 12/17/18 at 21:30 Aspirin (Ecotrin) 325 mg DAILY PO Last administered on 12/18/18at 08:12; Admin Dose 325 MG; Start 12/18/18 at 09:00 Nitroglycerin (Nitroglycerin (Sl Tab) 0.4 Mg) 1 tab Q5M PRN SL CHEST PAIN; Start 12/17/18 at 21:30 Acetaminophen (Tylenol Tab) 650 mg Q6H PRN PO PAIN LEVEL 1-5; Start 12/17/18 at 21:30 Zolpidem Tartrate (Ambien) 5 mg QHS PRN PO SLEEP; Start 12/17/18 at 21:30 Docusate Sodium (Colace) 100 mg Q12H PRN PO CONSTIPATION; Start 12/17/18 at 21:30 Magnesium Hydroxide (Milk Of Mag) 30 ml DAILY PRN PO CONSTIPATION; Start 12/17/18 at 21:30 Pantoprazole (Protonix Tab) 40 mg DAILY@06 PO Last administered on 12/18/18at 05:55; Admin Dose 40 MG; Start 12/18/18 at 06:00 Lisinopril (Zestril) 5 mg DAILY PO Last administered on 12/18/18at 08:12; Admin Dose 5 MG; Start 12/18/18 at 09:00 Insulin Glargine (Lantus) 29 units DAILY@2000 SC Last administered on 12/18/18at 20:04; Admin Dose 29 UNITS; Start 12/18/18 at 20:00 Miscellaneous Information 1 ea NOTE XX ; Start 12/17/18 at 22:00 Glucose (Glutose) 15 gm Q15M PRN PO DECREASED GLUCOSE; Start 12/17/18 at 22:00 Glucose (Glutose) 22.5 gm Q15M PRN PO DECREASED GLUCOSE; Start 12/17/18 at 22:00 Dextrose (D50w Syringe) 25 ml Q15M PRN IV DECREASED GLUCOSE; Start 12/17/18 at 22:00 Dextrose (D50w Syringe) 50 ml Q15M PRN IV DECREASED GLUCOSE; Start 12/17/18 at 22:00 Glucagon (Glucagen) 1 mg Q15M PRN IM DECREASED GLUCOSE; Start 12/17/18 at 22:00 Glucose (Glutose) 15 gm Q15M PRN BUCCAL DECREASED GLUCOSE; Start 12/17/18 at 22:00 Enoxaparin Sodium (Lovenox) 40 mg DAILY SC Last administered on 12/18/18at 09:27; Admin Dose 40 MG; Start 12/18/18 at 09:00 Diagnostic Test (Pha) (Accu-Chek) 1 ea 02 XX ; Start 12/19/18 at 02:00 Insulin Aspart (Novolog Insulin Pen) NOVOLOG *MODERATE* ALGORITHM WITH MEALS BEDTIME SC Last administered on 12/19/18at 08:09; Admin Dose 6 UNIT; Start 12/19/18 at 08:00 YISEL JOHNSON MD Dec 19, 2018 09:08
[2018-12-19] MEDS: ASPIRIN (EC) 325 MG TAB PO SCH (09:31)
[2018-12-19] MEDS: LISINOPRIL 5 MG TAB PO SCH (09:32)
[2018-12-19] MEDS: ENOXAPARIN 40 MG/0.4 ML SYG SC SCH (10:20)
[2018-12-19] MEDS ORDERED: REGADENOSON 0.4 MG/5 ML SYG ONE (11:47)
--- NOTE | 2018-12-19 12:02 | CONS ---
Assessment/Plan Assessment/Plan Hospital Course (Demo Recall) IMPRESSION: 1. Chest pain, assess for acute coronary syndrome with at this time negative troponins x3. NL EF by echo this admit. 2. Abnormal electrocardiogram with isolated T-wave flattening in lead aVL. 3. Hypertension, under reasonable control. 4. Diabetes mellitus. 5. Status post recent laparoscopic appendectomy. 6. Cough, assess for upper respiratory infection. 7. Elevated D-dimer.-No DVT by venous LENA/NO PE by CT 8. Dyslipidemia-LDL 11 HDL 23 Recc: -Tele -Continue asa -Contineu ACEI -PRN SL NTG dfor recurrent chest pain -Consider initiation of statin -Lexiscan stress test today and if no ischemia ok for d/c from cardiac stndpoint Consultation Date/Type/Reason Admit Date/Time Dec 19, 2018 at 08:58 Initial Consult Date Type of Consult Cardiology Reason for Consultation chest pain Requesting Provider: YISEL JOHNSON MD Date/Time of Note DATE: 12/19/18 TIME: 11:56 Exam/Review of Systems Vital Signs Vitals Vital Signs Date Temp Pulse Resp B/P (MAP) Pulse Ox O2 O2 Flow FiO2 Time Delivery Rate 12/19/18 81 08:07 12/19/18 97.6 20 135/71 96 Room Air 07:22 (92) Intake and Output 12/18/18 12/18/18 12/19/18 1515:00 23:00 07:00 IntakeIntake Total 2000 ml 1800 ml BalanceBalance 2000 ml 1800 ml Exam Exam Review of Systems: CONSTITUTIONAL: No fevers, chills. PULMONARY: No sob CARDIOVASCULAR: No chest pain/palpitations GASTROINTESTINAL: No nausea/vomiting. GENITOURINARY: No hematuria/dysuria. MUSCULOSKELETAL: No myagias/arthalgias. PSYCHIATRIC: The patient denies depression. NEUROLOGIC: No weakness Constitutional: alert Psych: no complaints Head: normocephalic ENMT: mucosa pink and moist Neck: supple, jvd (9 cm water) Respiratory: diminished breath sounds (at bases/B) Cardiovascular: regular rate and rhythm Gastrointestinal: soft, non-tender Musculoskeletal: muscle tone (normal) Extremities: edema (none) Neurological: other (No focal deficits) Labs Result Diagram: 12/18/186 12/18/18 0456 Results 24hrs Laboratory Tests Test 12/18/18 12:01 12/18/18 17:38 12/18/18 18:19 12/18/18 19:57 Bedside Glucose 342 H 284 H 320 H Troponin I < 0.012 Test 12/19/18 00:48 12/19/18 02:04 12/19/18 04:51 12/19/18 05:40 Troponin I < 0.012 < 0.012 Bedside Glucose 261 H Triglycerides Level 197 H Cholesterol Level 177 LDL Cholesterol, 115 Calculated HDL Cholesterol 23 L Cholesterol/HDL 7.6 Ratio DEIRDRE LANGFORD Dec 19, 2018 12:02
--- NOTE | 2018-12-19 12:26 | CARRPT ---
DATE OF PROCEDURE: 12/19/2018 TYPE OF PROCEDURE: Lexiscan Cardiolite stress test, electrocardiogram portion. REASON FOR STRESS TESTING: Chest pain, assess for ischemia. BASELINE VITAL SIGNS AND ELECTROCARDIOGRAM: Pulse 83, blood pressure 115/54. Electrocardiogram reve als normal sinus rhythm, rate of 83, normal axis, normal intervals, isolated T-wave flattening in aVL . PROCEDURE IN DETAILS: The patient underwent standard Lexiscan infusion over 10 seconds followed by t he radiolabeled tracer. The patient's test was stopped due to completion of protocol. Maximal achie horace blood pressure during the test was 135/83. Maximum heart rate during the test was 106. ELECTROCARDIOGRAM FINDINGS: The patient developed any new Lexiscan-induced ST or T-wave changes from baseline abnormalities documented PVCs. SYMPTOMS: The patient had a mild complaint of shortness breath during stress test that resolved in r ecovery. No chest pain. IMPRESSION: 1. No Lexiscan-induced ST or T-wave changes from baseline abnormalities diagnostic for ischemia. 2. Complaints of shortness of breath during stress testing. No chest pain. 3. No documented premature ventricular contractions during stress testing. 4. Report of nuclear images to follow in separate dictation. Dictated By: DEIRDRE HATFIELD/BERTHA Conf#: [id number] DID#: [id number] CC: YISEL JOHNSON MD;*EndCC*
--- NOTE | 2018-12-19 14:08 | PDOCDIS ---
Discharge Instructions CONDITION [id number] Patient Condition: [id number] Good HOME CARE INSTRUCTIONS: [id number] Diet Instructions: [id number] Reduced Calorie ACTIVITY: [id number] Activity Restrictions: [id number] Slowly Increase Activity YISEL JOHNSON MD Dec 19, 2018 14:08
[2018-12-19] MEDS ORDERED: PANT40TA4 PO (14:09)
--- NOTE | 2018-12-19 18:36 | NUR ---
CARE NOTES S/P STRESS TEST TODAY/ PROCEDURE WELL TOLERATED. STUDY NEGATIVE. PT DISCHARGED HOME PER DR. JOHNSON; RX AND DISCHARGE INSTRUCTIONS WELL VERBALIZED. TO FOLLOW UP WITH DR. JOHNSON INSTRUCTED. IV ACCESS DISCONTINUED WITH NO COMPLICATIONS.
--- NOTE | 2018-12-19 19:59 | RADRPT ---
Vent Rate: 80 bpm RR Interval: 0 msec [place] Interval: 164 msec QRS Duration: 84 msec QT Interval: 374 msec QTC Interval: 431 msec P-R-T [place]: 52 - 66 - 72 degrees Normal sinus rhythm Septal infarct , age undetermined Abnormal ECG Electronically Signed By: Cleve Pool [id number]
--- NOTE | 2018-12-19 20:01 | RADRPT ---
Vent Rate: 79 bpm RR Interval: 0 msec [place] Interval: 156 msec QRS Duration: 88 msec QT Interval: 370 msec QTC Interval: 424 msec P-R-T [place]: 54 - 59 - 72 degrees Normal sinus rhythm Anterior infarct , age undetermined Abnormal ECG Electronically Signed By: Cleve Pool [id number]
--- NOTE | 2018-12-20 10:34 | NUR ---
Diabetes Education: Pt discharged prior to being seen. Contacted pt and scheduled an outpatient class for December 27 3:00-4:30pm. Dr. Mosley notified.
--- NOTE | 2019-01-09 13:36 | DS ---
DATE OF ADMISSION: 12/19/2018 DATE OF DISCHARGE: 12/19/2018 HISTORY OF PRESENT ILLNESS AND HOSPITAL COURSE: This 48-year-old female was admitted because of ches t pain. The patient was admitted through the Emergency Room because of chest pain. Her EKG done in my office did show some anteroseptal Q-waves. There were no acute changes. The patient was admitted to telemetry floor. Her laboratory tests showed that her troponin was normal x3. The patient does have a history of type 2 diabetes mellitus and is on insulin. Her cholesterol in the hospital was 19 7 with a LDL of 115. She was seen in consultation by Dr. Cleve Pool, a local financial services intern. He di d an echocardiogram which was essentially unremarkable except for mild concentric left ventricular hy pertrophy, ejection fraction was 55% to 60%. Everything else was within normal limits. Normal left ventricular systolic function. She did have a Lexiscan done which did not show any perfusion defects . The chest pain was not felt to be cardiac in nature. She was sent home on her routine medication which included: 1. NovoLog insulin 10. 2. Lantus insulin 29 units at bedtime. 3. Aspirin 81 mg a day. 4. Lisinopril 5 mg a day. 5. Pantoprazole 40 mg a day. 6. Acetaminophen for pain. She was ambulatory at the time of discharge. She was in good condition at the time of discharge. It was felt that her chest pain was related to gastroesophageal reflux disease and she was started on a PPI. The patient will follow up with me in my office in 1 to 2 weeks. DISCHARGE DIAGNOSES: 1. Chest pain, noncardiac pain. 2. Gastroesophageal reflux disease. 3. Insulin-dependent diabetes mellitus. 4. Hyperlipidemia. Dictated By: YISEL JOHNSON MD ND/NTS Conf#: [id number] DID#: [id number] CC: YISEL JOHNSON MD;*EndCC*
== END 2018-12-19 18:32 | disposition home or self-care (01) | DRG 313 ==
LOC: E/R 17:37 → 6WM 21:08 → OBSVTOIN 12-19 08:58
PROVIDERS: ADMIT Internal Medicine; ATTEND Internal Medicine
DX: R07.9 Chest pain, unspecified (principal); Z68.41 Body mass index [BMI] 40.0-44.9, adult; R06.02 Shortness of breath; E11.65 Type 2 diabetes mellitus with hyperglycemia; E66.9 Obesity, unspecified; R05 Cough
CPT/HCPCS: 36415; 71045; 71275; 78452; 80048; 80053; 80061; 81025; 82962; 83036; 84484; 85025; 85378; 93005; 93017; 93306; 93970; G0378; A9500; A9505; J1650; J1815; J2785; Q9967